=== PATIENT | female | born 1990 | race Two or more races ===

== ENCOUNTER 2023-02-15 09:09 | Emergency (ER) | payer OTHER ==
[~2023-02-15] VITALS: Ht 170.2 cm; Wt 72.6 kg
[2023-02-15] MEDS ORDERED: LEXAPRO20 MG (09:41)
== END 2023-02-15 10:19 | disposition home or self-care (01) ==
LOC: ER 09:09
DX: T23.102A Burn of first degree of left hand, unspecified site, initial encounter (principal); X12.XXXA Contact with other hot fluids, initial encounter; Y93.89 Activity, other specified; Y92.89 Other specified places as the place of occurrence of the external cause

== ENCOUNTER 2023-12-22 17:54 | Emergency (ER) | payer OTHER ==
[~2023-12-22] VITALS: Ht 170.2 cm; Wt 68.0 kg
[~2023-12-22 17:54] MED LIST: LEXAPRO20 MG
[2023-12-22] MEDS ORDERED: ACID REDUCER20 M1 (18:13)
[2023-12-22] MEDS ORDERED: TRAZODONE HCL150 MG (18:14)
[2023-12-22] MEDS ORDERED: CLONAZEPAM0.5 MG PO (18:14)
[2023-12-22] MEDS ORDERED: ZOLOFT25 MG PO (18:14)
[2023-12-22] MEDS ORDERED: ORPHENADRINE CITRATE 30 MG/ML AMPUL IM ONE (20:15)
[2023-12-22] MEDS ORDERED: KETOROLAC TROMETHAMINE 60 MG VIAL IM ONE ×2 (20:15→21:00)
[2023-12-22] MEDS ORDERED: ORPHENADRINE CITRATE 30 MG/ML AMPUL ONE (21:00)
== END 2023-12-22 22:59 ==
LOC: ER 17:55
DX: S29.8XXA Other specified injuries of thorax, initial encounter (principal); V00.831A Fall from motorized mobility scooter, initial encounter; Y93.I9 Activity, other involving external motion; Y92.413 State road as the place of occurrence of the external cause; S89.82XA Other specified injuries of left lower leg, initial encounter; S89.81XA Other specified injuries of right lower leg, initial encounter; S69.82XA Other specified injuries of left wrist, hand and finger(s), initial encounter; S69.81XA Other specified injuries of right wrist, hand and finger(s), initial encounter; Z88.8 Allergy status to other drugs, medicaments and biological substances
CPT/HCPCS: 72040; 73110; 73130; 73560; 96372; 99284; J1885; J2360